=== PATIENT | male | born 1985 | race Caucasian/White ===

== ENCOUNTER 2023-12-21 06:25 | Emergency (ER) | payer OTHER, SELFPAY ==
[2023-12-21] VITALS (19 sets, daily range): BP systolic 151–164; BP diastolic 99–114; PULSE 79–134; RESP 15–28; TEMP 37.4; O2SAT 95–100
--- NOTE | ~2023-12-21 | CT_ITS ---
EXAMINATION: CT brain wo con DATE: 12/21/2023 07:45 INDICATION: Found down on the ground. Single seizure. TECHNIQUE: Computed tomography (CT) of the head was performed without intravenous contrast. Sagittal and coronal reconstructions were performed. The mA was adjusted according to patient size. Iterative reconstruction technique was employed. The dose-length product was 605.33 mGy-cm. COMPARISON: None FINDINGS: No calvarial fracture. There are some soft tissue swelling at the bridge of the nose and in the prese ptal soft tissues. Orbits appear otherwise normal with no post septal inflammatory stranding. No acut e intracranial hemorrhage, acute infarction or abnormal extra axial fluid collection. Ventricles are normal and symmetric. No mass/mass effect. Mastoid air cells and visualized paranasal sinuses are nor mal. IMPRESSION: 1. Normal brain. No fracture or acute intracranial process. Reviewed, dictated and finalized at location A.
--- NOTE | 2023-12-21 06:41 | ECG_ITS ---
Test Date: 2023-12-21 06:46:52 Measurements Intervals [place] Rate: 119 P: 65 CO: 145 QRS: 72 QRSD: 80 T: 58 QT: 313 QTc: 440 Interpretive Statements SINUS TACHYCARDIA POSSIBLE LEFT ATRIAL ENLARGEMENT [-0.1mV P WAVE IN V1/V2] PREVIOUS ANTERIOR WALL INFARCTION ABNORMAL ECG No previous ECG available for comparison Electronically Signed On 12-21-2023 08:49:48 CDT by Kyle Saunders M.D.
[2023-12-21 06:51] LABS: Basophils Percent Auto 0.6 % (0.2-1.2); Eosinophils Percent Auto 0.2 % (0-4.4); Hemoglobin 15.4 g/dL (14.0-18.0); Immature Granulocyte Absolute 0.01 K/mm3 (0.00-0.031); Immature Granulocyte Percent A 0.2 % (0-0.5); Immature Platelet Fraction Pct 4.8 % (0.9-11.2); Lymphocytes Absolute Auto 1.34 K/mm3 (0.9-3.2); Lymphocytes Percent Auto 25.4 % (18.3-44.2); Mean Corpuscular HGB Conc 34.2 g/dl (32-36); Mean Corpuscular Hemoglobin 32.4 pg (26-34); Mean Corpuscular Volume 94.7 fl (80-100); Mean Platelet Volume 10.2 fl (7.4-10.4); Monocytes Absolute Auto 0.6 K/mm3 (0.1-0.6); Monocytes Percent Auto 11.2 % (2.6-8.5); Neutrophils Absolute Auto 3.3 K/mm3 (1.3-6.7); Neutrophils Percent Auto 62.4 % (45.5-73.1); Platelet Count Result 48 k/mm3 (150-375); Red Blood Count 4.75 M/mm3 (4.6-6.20); Red Cell Distribution Width 13.2 % (11.5-14.5); White Blood Count 5.3 K/mm3 (4.5-10.0)
[2023-12-21 07:01] LABS: Alanine Aminotransferase 60 U/L (6-50); Albumin Level 5.1 g/dL (3.5-5.1); Alkaline Phosphatase 91 U/L (38-126); Anion Gap 25 mmol/L (4-12); Aspartate Amino Transferase 154 U/L (17-59); Bilirubin,Total 1.6 mg/dL (0.2-1.3); Blood Urea Nitrogen 5 mg/dL (9-20); Calcium 9.9 mg/dL (8.4-10.2); Carbon Dioxide 14 mmol/L (22-30); Chloride 97 mmol/L (98-107); Estimated CRCL calculation 125 ml/min; Estimated Glomerular Filt Rate > 60; Glucose 115 mg/dL (65-110); Potassium 3.5 mmol/L (3.4-5.0); Sodium 136 mmol/L (137-145)
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
[2023-12-21] MEDS: SODIUM CHLORIDE 0.9% IV 1,000 ML 999 ML IV CONT ×2 (07:16→07:49)
[2023-12-21 08:24] LABS: Ethanol < 10 mg/dL (<10)
[2023-12-21 09:28] LABS: Amphetamine Screen Urine Negative (Negative); Barbiturate Screen Urine Negative (Negative); Benzodiazepines Screen Urine Negative (Negative); Cannabinoid Screen Urine Negative (Negative); Cocaine Screen Urine Negative (Negative); Methadone Screen Urine Negative (Negative); Opiate Screen Urine Negative (Negative); Phencyclidine Screen Urine Negative (Negative)
== END 2023-12-21 10:27 | disposition home or self-care (01) ==
PROVIDERS: Emergency Medicine; Emergency Provider Emergency Medicine
DX: R55 Syncope and collapse (principal); R56.9 Unspecified convulsions
CPT/HCPCS: 36415; 70450; 80053; 80307; 85025; 85055; 93005; 96360; 96361; 99284; J7030

== ENCOUNTER 2024-03-24 19:41 | Emergency (ER) | payer OTHER, SELFPAY ==
[2024-03-24] VITALS (11 sets, daily range): BP systolic 119–128; BP diastolic 93–96; PULSE 65–90; RESP 15–20; TEMP 36.4; O2SAT 98–99
--- NOTE | ~2024-03-24 | CT_ITS ---
EXAMINATION: CT brain wo con DATE: 03/24/2024 20:43 INDICATION: alcohol, altered mental status . TECHNIQUE: Computed tomography (CT) of the head was performed without intravenous contrast. The mA wa s adjusted according to patient size. Iterative reconstruction technique was employed. The dose-lengt h product was 681.00 mGy-cm. COMPARISON: 12/21/2023. FINDINGS: No acute intracranial hemorrhage or extra-axial fluid collection. No hydrocephalus, mass, or herniation. No acute ischemic infarct. Unremarkable dural venous sinus attenuation. No acute osseous abnormality. The aerated spaces are clear. IMPRESSION: No acute intracranial process. Reviewed, dictated and finalized at location K.
--- NOTE | ~2024-03-24 | XR_ITS ---
EXAMINATION: XR chest 2V Exam Date/Time: 03/24/2024 20:40 CDT HISTORY: possible aspiration ETOH Comparison: None. RESULT: Lines, tubes, and devices: None. Lungs and pleura: Clear. Cardiomediastinal silhouette: Normal. Other: No acute osseous or upper abdominal finding. IMPRESSION: No acute cardiopulmonary process. Reviewed, dictated and finalized at location K.
--- NOTE | ~2024-03-24 | CT_ITS ---
EXAMINATION: CT chest abdomen pelvis w con DATE: 03/24/2024 23:45 INDICATION: elevated liver enzymes, pt has blood in his urine . TECHNIQUE: Computed tomography (CT) of the chest, abdomen, and pelvis was performed with 100 mL Omnip aque-350 intravenous contrast. Automated exposure control and iterative reconstruction technique were employed. The dose-length product was 766.94 mGy-cm. COMPARISON: X-ray chest, same date. FINDINGS: CHEST: Thoracic aorta: No significant dilation. No dissection. Minimal arch calcification. Lung parenchyma and airways: Lungs and airways are clear. Thoracic inlet, axillae and chest wall: No thyroid or soft tissue mass. No axillary lymphadenopathy. Mediastinum: No mass or lymphadenopathy. Moderate mid and lower esophageal wall edema. Heart and pericardium: Normal heart size. No pericardial effusion. Coronary artery calcifications: Absent. Pleura: No effusion or mass. Thoracic bones: No acute osseous finding in the chest. ABDOMEN/PELVIS: Liver: Enlarged. Diffuse fatty infiltration. Biliary/Gallbladder: Gallbladder is normal. No bile duct dilation. Pancreas: No mass or duct dilation. Spleen: Normal. Adrenals:No mass. Kidneys: No suspicious mass, obstructing stone, or hydronephrosis. GI tract: Moderate gastric wall edema. No small or large bowel dilation. Normal appendix. Mesentery/Peritoneum: No ascites, mass, or free air. Retroperitoneum: No mass Pelvis: Pelvic organs are within normal limits Soft Tissues: Soft tissues and body wall unremarkable. Abdominopelvic bones: No acute osseous finding in the abdomen/pelvis. IMPRESSION: Moderate esophagitis/gastritis. Hepatomegaly and steatosis. Otherwise, no acute finding detected in the chest, abdomen, or pelvis. Reviewed, dictated and finalized at location K.
--- NOTE | 2024-03-24 20:03 | ECG_ITS ---
Test Date: 2024-03-24 20:05:57 Measurements Intervals [place] Rate: 70 P: 41 IA: 146 QRS: 57 QRSD: 89 T: 35 QT: 397 QTc: 430 Interpretive Statements SINUS RHYTHM CANNOT R/O SEPTAL INFARCT, AGE INDETERMINATE BASELINE WANDER- V3-V6 ABNORMAL ECG Compared to ECG 12/21/2023 06:46:52 HEART RATE HAS DECREASED Electronically Signed On 03-25-2024 05:24:01 CDT by Maik Nunez D.O.
[2024-03-24 20:23] LABS: Basophils Percent Auto 0.5 % (0.2-1.2); Eosinophils Absolute Auto 0.1 K/mm3 (0-0.3); Eosinophils Percent Auto 1.4 % (0-4.4); Hematocrit 42.6 % (42.0-52.0); Hemoglobin 14.4 g/dL (14.0-18.0); Immature Granulocyte Absolute 0.01 K/mm3 (0.00-0.031); Immature Granulocyte Percent A 0.2 % (0-0.5); Immature Platelet Fraction Pct 3.5 % (0.9-11.2); Lymphocytes Absolute Auto 1.86 K/mm3 (0.9-3.2); Lymphocytes Percent Auto 32.1 % (18.3-44.2); Mean Corpuscular HGB Conc 33.8 g/dl (32-36); Mean Corpuscular Volume 97.5 fl (80-100); Mean Platelet Volume 9.7 fl (7.4-10.4); Monocytes Absolute Auto 0.3 K/mm3 (0.1-0.6); Monocytes Percent Auto 5.5 % (2.6-8.5); Neutrophils Absolute Auto 3.5 K/mm3 (1.3-6.7); Neutrophils Percent Auto 60.3 % (45.5-73.1); Platelet Count Result 100 k/mm3 (150-375); Red Blood Count 4.37 M/mm3 (4.6-6.20); Red Cell Distribution Width 13.4 % (11.5-14.5); White Blood Count 5.8 K/mm3 (4.5-10.0)
[2024-03-24 20:27] LABS: Lactic Acid Reflex 2.8 mmol/L (0.7-2.0)
[2024-03-24 20:28] LABS: Alanine Aminotransferase 162 U/L (6-50); Albumin Level 4.4 g/dL (3.5-5.1); Alkaline Phosphatase 88 U/L (38-126); Anion Gap 13 mmol/L (4-12); Aspartate Amino Transferase 672 U/L (17-59); Blood Urea Nitrogen 6 mg/dL (9-20); Calcium 9.2 mg/dL (8.4-10.2); Carbon Dioxide 28 mmol/L (22-30); Chloride 107 mmol/L (98-107); Estimated CRCL calculation 125 ml/min; Estimated Glomerular Filt Rate > 60; Glucose 95 mg/dL (65-110); Potassium 3.8 mmol/L (3.4-5.0); Sodium 148 mmol/L (137-145)
[2024-03-24 20:30] LABS: INR 1.1; Prothrombin Time 14.2 Seconds (11.1-14.7)
[2024-03-24 20:41] LABS: Creatine Kinase 339 U/L (55-170)
[2024-03-24 20:50] LABS: Ethanol 455 mg/dL (<10)
[2024-03-24 20:55] LABS: Troponin I < 0.012 ng/mL (0.000-0.034)
[2024-03-24] MEDS: THIAMINE HCL 200 MG/2 ML VIAL 100 MG IV PUSH (20:59)
[2024-03-24] MEDS: SODIUM CHLORIDE 0.9% IV 1,000 ML 999 ML IV CONT ×2 (21:00→23:19)
[2024-03-24 21:13] LABS: Thyroid Stimulating Hormone 0.951 uIU/mL (0.465-4.680)
[2024-03-24 21:25] LABS: Add Urine Microscopic? YES; Appearance Urine Clear (Clear); Bacteria Urine None Seen /hpf; Bilirubin Urine Negative (Negative); Blood Urine 3+ (Negative); Color Urine Yellow (Yellow); Glucose Urine UA Negative (Negative); Ketones Urine Negative (Negative); Leukocyte Esterase Ur Negative LEU/UL (Negative); Need Manual Microscopic Reviewed; Nitrate Urine Negative (Negative); Non Pathogenic Casts 0-2; Protein Urine Negative (Negative); Specific Grav Ur 1.004 (1.001-1.035); Squamous Epithelial Cell Urine None Seen /hpf (Few); WBC Urine 0-5 /hpf (0-3); pH Urine 6.5 (5.0-9.0)
[2024-03-24 21:34] LABS: Amphetamine Screen Urine Negative (Negative); Barbiturate Screen Urine Negative (Negative); Benzodiazepines Screen Urine Negative (Negative); Cannabinoid Screen Urine Negative (Negative); Cocaine Screen Urine Negative (Negative); Methadone Screen Urine Negative (Negative); Opiate Screen Urine Negative (Negative); Phencyclidine Screen Urine Negative (Negative)
[2024-03-24] MEDS: LORazepam (*CRX) 1 MG TABLET PO (21:53)
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
[2024-03-24 22:29] LABS: Folic Acid 4.5 ng/mL (2.76->20)
[2024-03-24] MEDS: CYANOCOBALAMIN 1,000 MCG TABLET 1000 MCG PO (22:58)
[2024-03-24] MEDS: FOLIC ACID 1 MG TABLET PO (22:58)
[2024-03-24] MEDS: MULTIVIT/MIN/PREN/FOL AC/IRON TABLET 1 TAB PO (22:58)
[2024-03-24 23:18] LABS: Reflex Lactic Acid Yes or No Add Lactic
[2024-03-25] VITALS (8 sets, daily range): BP systolic 108–116; BP diastolic 72–82; PULSE 64–96; RESP 14–20; O2SAT 100
--- NOTE | 2024-03-25 02:32 | PC.NURSE ---
Pt refusing EKG and to give Urine Sample. This RN has now attempted EKG and to obtain urine three times and pt refuses.
[2024-03-25 02:40] LABS: Lactic Acid 2.3 mmol/L (0.7-2.0)
[2024-03-25 03:45] LABS: Chlamydia trachomatis NOT DETECTED (NOT DETECTE); Neisseria gonorrhoeae PCR NOT DETECTED (NOT DETECTE)
== END 2024-03-25 07:33 | disposition home or self-care (01) ==
PROVIDERS: Registered Nurse; Emergency Provider Emergency Medicine
DX: F10.129 Alcohol abuse with intoxication, unspecified (principal); R74.01 Elevation of levels of liver transaminase levels; Y90.8 Blood alcohol level of 240 mg/100 ml or more; K20.90 Esophagitis, unspecified without bleeding; K29.70 Gastritis, unspecified, without bleeding; K76.0 Fatty (change of) liver, not elsewhere classified; R94.31 Abnormal electrocardiogram [ECG] [EKG]
CPT/HCPCS: 36415; 70450; 71046; 71260; 74177; 80053; 80307; 81001; 82550; 82607; 82746; 83605; 84443; 84484; 85025; 85055; 85610; 85730; 87491; 87591; 93005; 96361; 96374; 99284; A9270; J3411; J7030; Q9967